=== PATIENT | female | born 1970 | race Hispanic/Latino ===

== ENCOUNTER → 2024-11-14 12:43 | Outpatient (CLI) | payer OTHER, SELFPAY ==
--- NOTE | 2024-11-14 12:44 | DI.CT.S_ITS ---
PROCEDURE: CT HIP RIGHT WITHOUT CON INDICATIONS: surgical planning, r hip dysplasia TECHNIQUE: Noncontrast 3 mm axial sections acquired through the bony pelvis. Additional 3 mm axial sections acquired through the symptomatic hip joint, with coronal and sagittal reformats. COMPARISON: [facility], CR, ORTHO-XR HIP RT 2V, 07/29/2024, 14:49. FINDINGS: Image quality: Excellent. Bones: There is anterior and internal rotation at right hip joint. There is uncovering of right femoral head by right acetabulum. Superior migration of right femoral head in relation to the acetabulum is seen with extensive remodeling and pseudoarthrosis at the area of articulation. No acute fracture or dislocation. No definite avascular necrosis of femoral head. Left hip joint osteoarthritic changes are seen. No evidence of left hip dysplasia or avascular necrosis. No suspicious bony lesions. Soft tissues: There is moderate right hip joint effusion, no calcified intra- articular loose bodies. No soft tissue mass or abnormal soft tissue calcifications. No peritoneal free fluid or free air. Bladder wall thickness is normal. No pelvic lymphadenopathy. IMPRESSION: 1. Study is for surgical planning. 2. 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 Superior migration of right femoral head in relation to right acetabulum. Anterior and internal rotation at the right hip joint. No acute fracture or dislocation. No gross avascular necrosis of femoral heads. Mild left hip joint osteoarthritis. 3. Moderate right hip joint effusion, no calcified intra-articular loose bodies. No soft tissue mass or drainable fluid collection. No abnormal soft tissue calcifications. No peritoneal free fluid or free air. Dictated by: Charlie Garcia M.D. on 11/14/2024 at 15:39 Approved by: Charlie Garcia M.D. on 11/14/2024 at 15:48
== END ==
LOC: CT 12:43
PROVIDERS: Family Provider Student in an Organized Health Care Education/Training Program; PCP Student in an Organized Health Care Education/Training Program; Referring Provider Orthopaedic Surgery Adult Reconstructive Orthopaedic Surgery; Visit Provider Orthopaedic Surgery Adult Reconstructive Orthopaedic Surgery
DX: Z01.818 Encounter for other preprocedural examination (principal); M16.31 Unilateral osteoarthritis resulting from hip dysplasia, right hip; M16.0 Bilateral primary osteoarthritis of hip; M16.11 Unilateral primary osteoarthritis, right hip
CPT/HCPCS: 36415; 73700; 80048; 82040; 82306; 83036; 84134; 85025; 85651; 86140

== ENCOUNTER → 2024-11-14 12:44 | Outpatient (CLI) | payer OTHER, SELFPAY ==
[2024-11-14 13:11] LABS: Hemoglobin A1C% w Est Avg Glu 6.0 % (4.0-6.0)
[2024-11-14 13:23] LABS: Add Manual Diff / Slide Review NO; Hematocrit 39.2 % (36-46); Hemoglobin 13.0 g/dL (12.0-16.0); Lymphocytes Absolute Auto 2200 /uL (1100-4500); Mean Corpuscular HGB Conc 33.1 % (30-36); Mean Corpuscular Hemoglobin 26.1 PG (26-34); Mean Corpuscular Volume 79.0 fL (80-100); Platelet Count 219 X10^3/uL (150-400)
[2024-11-14 14:32] LABS: Anisocytosis 1+
[2024-11-14 15:30] LABS: Albumin 4.8 g/dL (3.5-5.0); Blood Urea Nitrogen 18 mg/dL (7-17); Calcium 9.6 mg/dL (8.4-10.2); Carbon Dioxide 23 mmol/L (22-32); Chloride 106 mmol/L (98-107); Estimated Glomerular Filt Rate > 60 mL/min (>60); Glucose 133 mg/dL (70-99); HEMOLYSIS < 15 (0-50); Potassium 3.7 mmol/L (3.4-5.1); Sodium 142 mmol/L (137-145)
[2024-11-14 15:36] LABS: Prealbumin 37.4 mg/dL (17.6-36.0)
[2024-11-14 15:42] LABS: Vitamin D 25 Hydroxy (D3) 31.6 ng/mL (30.0-100.0)
== END ==
LOC: LAB 12:45
PROVIDERS: Family Provider Student in an Organized Health Care Education/Training Program; PCP Student in an Organized Health Care Education/Training Program; Referring Provider Orthopaedic Surgery Adult Reconstructive Orthopaedic Surgery; Visit Provider Orthopaedic Surgery Adult Reconstructive Orthopaedic Surgery
DX: Z01.818 Encounter for other preprocedural examination (principal); M16.11 Unilateral primary osteoarthritis, right hip
CPT/HCPCS: 36415; 80048; 82040; 82306; 83036; 84134; 85025; 85651; 86140